=== PATIENT | female | born 2000 | race Caucasian/White ===

== ENCOUNTER 2019-12-22 07:57 | Inpatient (IN) | payer OTHER ==
[2019-12-22 08:42] LABS: APPEARANCE,URINE CLEAR; BILIRUBIN,URINE NEGATIVE (NEGATIVE); COLOR,URINE YELLOW; GLUCOSE, URINE NEGATIVE (NEGATIVE); KETONES,URINE NEGATIVE (NEGATIVE); LEUKOCYTE ESTERASE,URINE NEGATIVE (NEGATIVE); NITRITE,URINE NEGATIVE (NEGATIVE); PROTEIN,URINE NEGATIVE (NEGATIVE); URINE SPECIFIC GRAVITY 1.014; UROBILINOGEN,URINE NEGATIVE mg/dL (<2.0)
[2019-12-22 09:08] LABS: URINE AMPHETAMINES SCREEN NEGATIVE; URINE BARBITURATES SCREEN NEGATIVE; URINE BENZODIAZEPINES SCREEN NEGATIVE; URINE COCAINE SCREEN NEGATIVE; URINE MARIJUANA (THC) SCREEN NEGATIVE; URINE METHADONE SCREEN NEGATIVE; URINE PHENCYCLIDINE SCREEN NEGATIVE
--- NOTE | 2019-12-22 09:23 | Non Stress Test Report ---
Non Stress Test Datetime Report Generated by CPN: 12/22/2019 09:22 DEMOGRAPHIC EGA NST: 40.0 INDICATION Indication for Study (NST) Other: LC- ctxs MONITORING Monitor Explained: Monitor Explained; Test Explained; Patient Verbalized Understanding Time on Monitor: 12/22/2019 08:20 Time off Monitor: 12/22/2019 09:13 NST Duration: 53 NST INTERVENTIONS NST Interventions: PO Hydration Physician Notified NST: Dr Goff BABY A: [id number] BABY A Movement : Present Contraction Frequency : 2-5 FHR Baseline : 125 Accelerations : 15X15 Variability : Moderate 6-25bpm NST Review: Meets Criteria for Reactive NST NST Review and Verified By : Deedee Rios RN NST Results: Reactive NST REPORT Report Trigger: Send Report
[2019-12-22] MEDS ORDERED: RINGERS SOLUTION,LACTATED 1,000 ML IV ONE (10:29)
[2019-12-22] MEDS ORDERED: EPHEDRINE SULFATE INJ 50 MG/1 ML AMPULE ONE (10:32)
[2019-12-22] MEDS ORDERED: FENTANYL/BUPIVACAINE/NS/PF 300 MCG/150 ML RTUINJ EPI ONE (10:32)
[2019-12-22] MEDS ORDERED: ROPIVACAINE HCL 0.2% INJ/PF (2 MG/ML) 20 ML SDV ONE (10:33)
[2019-12-22] MEDS ORDERED: MISOPROSTOL 0.2 MG TABLET ONE (10:36)
[2019-12-22] MEDS ORDERED: OXYTOCIN/0.9 % SODIUM CHLORIDE 30 UNIT/500 ML RTUINJ ONE (10:36)
[2019-12-22] MEDS ORDERED: OXYTOCIN 10 UNIT/ML VIAL ONE (10:36)
[2019-12-22] MEDS ORDERED: LIDOCAINE 1% INJ-PF (10 MG/ML) 30 ML SDV ONE (10:36)
--- NOTE | 2019-12-22 10:46 | Admission Physical ---
Datetime Report Generated by CPN: 12/22/2019 10:46 CURRENT ADMISSION Chief Complaint: Uterine Contractions Chief Complaint Other: Having contractions every 2 minutes and they are very painful. Cervical change in OB triage from 3 cm to 4-5 over 1 hour. Admit Impression : Term, Intrauterine ; Active Labor Admit Plan: Admit to Unit; Initiate Labor Protocol ALLERGIES Medication Allergies: Yes Medication Allergies: Penicillins (12/22/2019) Latex: No Latex Allergies OBSTETRICAL HISTORY EDC: 12/22/2019 00:00 : 1 Para: 0 Term: 0 : 0 SAB: 0 IAB: 0 Ectopic: 0 Livin Cesareans: 0 VBACs: 0 Multiple Births: 0 Gestational Diabetes: No Rh Sensitization: No Incompetent Cervix: No OSMAN: No Infertility: No ART Treatment: No Uterine Anomaly: No IUGR: No Hx Previous C/S: No Macrosomia: No Hx Loss/Stillborn: No PIH: No Hx : No Placenta Previa/Abruption: No Depression/PP Depression: Yes PTL/PROM: No Post Hemorrhage: No Current Procedures: Ultrasound; NST Obstetrical History Comments: G1: current SEE RECORDS Alcohol: No Marijuana : No Cocaine: No Other Illicit Drugs: No Cigarettes: Never Smoker. [id number] MEDICAL HISTORY Diabetes: No Blood Transfusion: No Pulmonary Disease (Asthma, TB): No Breast Disease: No Hypertension: No Security Management Specialist Surgery: No Heart Disease: No Hosp/Surgery: No Autoimmune Disorder: No Anesthetic Complications: No Kidney Disease: No Abnormal Pap Smear: No Neuro/Epilepsy: No Psychiatric Disorders: No Other Medical Diseases: No Hepatitis/Liver Disease: No Significant Family History: No Varicosities/Phlebitis: No Trauma/Violence : No Thyroid Dysfunction: No Medical History Comments: bladder infections, depression INFECTIOUS HISTORY Gonorrhea: No Genital Herpes: No Chlamydia: No Tuberculosis: No Syphilis: No Hepatitis: No HIV/AIDS Exposure: No Rash or Viral Illness: No HPV: No PHYSICAL EXAM General: Normal HEENT: Normal Neurologic: Normal Thyroid: Normal Heart: Normal Lungs: Normal Breast: Normal Back: Normal Abdomen: Normal Genitourinary Exam: Normal Extremities: Normal DTRs: Normal Pelvic Type: Adequate Vital Signs: Reviewed; Within Normal Limits VAGINAL EXAM Dilatation: 5 Effacement: 50 Station: -2 Contraction Comments: every 2 minutes MEMBRANES Membranes: Intact FETUS A EGA: 40.0 Monitoring: External US FHR- Baseline: 120 Variability: Marked >25bpm Accelerations: 15X15 Decelerations: None FHR Category: Category I Presentation: Vertex Admit Comment: 19 yo G1 at 40.0 wks EGA in active labor -Admit to LDR -CEFM and toco -NPO and IVFs: LR at 125 cc/hr after 1 liter bolus -GBS negative -Desires epidural for pain mgt as soon as possible : labs pending -Anticipate PLANS FOR LABOR AND DELIVERY Labor and Delivery: None Pain Management: Epidural Feeding Preference: Breast Benefit of Breast Feed Discussed: Yes Circumcision: N/A INFORMED CONSENT Informed Consent Obtained: Vaginal Delivery; Section Delivery; Vacuum/Forceps Assist; Risks, Benefits and Alternatives Discussed Signature: with User ID: Hernando : with User ID: Hernando
[2019-12-22] MEDS ORDERED: NALBUPHINE HCL INJ 10 MG/1 ML AMPULE INJ ONE (10:48)
[2019-12-22] MEDS ORDERED: NALBUPHINE HCL INJ 10 MG/1 ML AMPULE ONE (10:48)
[2019-12-22 11:20] LABS: ABSOLUTE BASOPHILS # (AUTO) 0.1 10^3/uL (0.0-0.2); ABSOLUTE MONOCYTES (AUTO) 0.6 10^3/uL (0.1-1.4); ABSOLUTE NEUT (AUTO) 9.5 10^3/uL (1.7-8.2); BASOPHILS % (AUTO) 0.5 % (0-2); EOSINOPHILS % (AUTO) 0.4 % (0-6); HEMATOCRIT 29.7 % (36.0-47.0); HEMOGLOBIN 10.2 g/dL (12.0-15.5); LYMPHOCYTES % (AUTO) 9.3 % (13-45); MEAN CORPUSCULAR HEMOGLOBIN 30.6 pg (27.0-33.4); MEAN CORPUSCULAR HGB CONC 34.4 g/dL (32.0-36.0); MEAN CORPUSCULAR VOLUME 89 fl (80-97); MONOCYTES % (AUTO) 5.5 % (3-13); PLATELET COUNT 160 10^3/uL (150-450); RED BLOOD COUNT 3.34 10^6/uL (3.72-5.28); RED CELL DISTRIBUTION WIDTH 12.7 % (11.5-14.0); SEGMENTED NEUTROPHILS % (AUTO) 84.3 % (42-78); TOTAL CELLS COUNTED % (AUTO) 100 %; WHITE BLOOD COUNT 11.3 10^3/uL (4.0-10.5)
[2019-12-22] MEDS: RINGERS SOLUTION,LACTATED 1,000 ML IV PRN ×2 (11:30→16:01)
[2019-12-22] MEDS ORDERED: OXYTOCIN/0.9 % SODIUM CHLORIDE 30 UNIT/500 ML RTUINJ IV PRN ×2 (15:43→21:54)
[2019-12-22] MEDS ORDERED: LIDOCAINE 2% INJ-PF (20 MG/ML) 10 ML AMPUL ONE ×2 (17:11→21:05)
[2019-12-22] MEDS ORDERED: IBUPROFEN 800 MG TABLET ONE (19:18)
[2019-12-22] MEDS ORDERED: CLINDAMYCIN 900 MG/D5W RTU 900 MG/50 ML RTUPB IV ONE (19:41)
[2019-12-22] MEDS ORDERED: FENTANYL CITRATE INJ/PF 100 MCG/2 ML AMPUL ONE (21:05)
[2019-12-22] MEDS ORDERED: MIDAZOLAM 2 MG/2 ML INJ ONE (21:05)
[2019-12-22] MEDS ORDERED: PROPOFOL INJ 200 MG/20 ML VIAL IV ONE (21:05)
[2019-12-22] MEDS ORDERED: ONDANSETRON HCL INJ/PF 4 MG/2 ML SDV IV PRN (21:39)
[2019-12-22] MEDS ORDERED: DIPHENHYDRAMINE HCL 50 MG/ML VIAL IV PRN (21:39)
[2019-12-22] MEDS ORDERED: FENTANYL CITRATE INJ/PF 100 MCG/2 ML AMPUL IV PRN ×3 (21:39)
[2019-12-22] MEDS ORDERED: MEPERIDINE HCL/PF INJ 25 MG/1 ML DISP.SYRIN IV PRN (21:39)
[2019-12-22] MEDS ORDERED: PROMETHAZINE HCL INJ 25 MG/1 ML VIAL IV PRN ×3 (21:39→21:54)
--- NOTE | 2019-12-22 21:41 | Delivery Summary ---
Del Sum A-C Datetime Report Generated by CPN: 12/22/2019 21:41 DELIVERY PERSONNEL DELIVERY PERSONNEL: [id number] Delivery Doctor:: Jaqueline Goff MD Labor and Delivery Nurse:: Nicole Sloan RNcigar packer and picker Nurse:: Zohra Newman RN Nursery Nurse:: Radha Mar RN Fortune Cookie Maker/GUN BARREL FINISHER: Herminio Preciado CST Fortune Cookie Maker/GUN BARREL FINISHER: Roxi Schrader, [facility] MATERNAL INFORMATION Delivery Anesthesia: Epidural Medications After Delivery: Pitocin 30 Units in 500ml NS/D5W Estimated Blood Loss (ml): 300 Delivery QBL: 300 Maternal Complications: None Provider Comments: Called to patients room as she was complete and +2 with desire to push. After delivery of the head, the posterior hand could be felt at the posterior shoulder. No nuchal cords. Attempt was made to reduce the posterior arm but the anterior shoulder spontaneouslly delivered with the anterior. The rest of the body followed easily. Despite pressure on the perineum posteriorly during delivery a fourth degree laceration resulted. Infant was vigorous and cord clamping delayed for 30 seconds. Cord doubly clamped and cut. Infant placed on Mothers chest and nasal as well as oral suctioning was done. Repair of laceration as above but a small 1 cm rectal mucosa deficit remained and general surgery consulted for assistance with this repair. LABOR SUMMARY EDC: 12/22/2019 00:00 No. Babies in Womb: 1 Attempted: No Labor Anesthesia: Epidural LABOR INFORMATION Reason for Induction: Not Applicable Onset of Labor: 12/22/2019 10:23 Complete Dilatation: 12/22/2019 16:56 Oxytocin: Augmentation Group B Beta Strep: negative Antibiotics # of Doses: 0 Antibiotics Time of Last Dose: N/A Name of Antibiotic Given: N/A Steroids Given: None Reason Steroids Not Administered: Not Applicable MEMBRANES Membranes Rupture Method: Spontaneous Rupture of Membranes: 12/22/2019 13:15 Length of Rupture (hr): 5.90 Amniotic Fluid Color: Clear Amniotic Fluid Amount: Small Amniotic Fluid Odor: Normal STAGES OF LABOR Stage 1 hr: 6 Stage 1 min: 33 Stage 2 hr: 2 Stage 2 min: 13 Stage 3 hr: 0 Stage 3 min: 4 Total Time in Labor hr: 8 Total Time in Labor min: 50 VAGINAL DELIVERY Episiotomy: None Laceration #1: Perineal Laceration Extension #1: Fourth Degree Other Laceration: 2nd degree right vaginal wall Laceration Repair: Yes Laceration Repair Note: Second degree repaired with 2-0 chromic and fourth degree repaired in layered closure with assistance of general surgery. The rectal mucosa was repaired in a running fashion with 3-0 chromic. Rectal muscles were reapproximated with 2-0 chromic in a series of interrupted stitches. The perineal muscles were reapproximated and then the remaining mucosa was repaired. After repair complete a digital rectal exam was done and a small deficit was noted in the rectal mucosa anteriorly about 1 cm inside the rectum. Will go to OR for repair of this and consult general surgery for assistance. Sponge Count Correct: Yes Sharps Count Correct: Yes CSECTION DELIVERY Primary Indication: N/A Secondary Indication: N/A CSection Incidence: N/A Labor: N/A Elective: Failed CSection Incision: N/A BABY A INFORMATION Delivery Date/Time: 12/22/2019 19:09 Method of Delivery: Vaginal Born in Route : No : N/A Forceps: N/A Vacuum Extraction: N/A Shoulder Dystocia : No PRESENTATION/POSITION BABY A Presentation: Cephalic Cephalic Presentation: Vertex Vertex Position: Right Occipital Anterior Breech Presentation: N/A PLACENTA INFORMATION BABY A Placenta Delivery Time : 12/22/2019 19:13 Placenta Method of Delivery: Spontaneous Placenta Status: Delivered SCORES BABY A Heart Rate 1 min: >100 bpm Resp Effort 1 min: Good Cry Reflex Irritability 1 min: Cough or Sneeze or Pulls Away Muscle Tone 1 min: Active Motion Color 1 min: Blue/Pale Resuscitation Effort 1 min: Tactile Stimulation SCORE 1 MIN: 8 Heart Rate 5 min: >100 bpm Resp Effort 5 min: Good Cry Reflex Irritability 5 min: Cough or Sneeze or Pulls Away Muscle Tone 5 min: Active Motion Color 5 min: Body [place], Extremities Blue Resuscitation Effort 5 min: Tactile Stimulation SCORE 5 MIN: 9 INFORMATION BABY A Gestational Age at Delivery: 40.0 Gestational Status: Full Term- 39- 40.6 Weeks Infant Outcome : Liveborn Infant Condition : Stable Sex: Female IDENTIFICATION BABY A Infant Verification Date/Time: 12/22/2019 20:26 ID Band Number: [id number] Mother's Name Verified: Yes Infant RN Verifying Infant: Alex Sloan RN Additional Verifying Personnel: Juliane Atkins CST WEIGHT/LENGTH BABY A Infant Birthweight (gm): 3360 Infant Weight (lb): 7 Weight (oz): 7 Length (in): 19.00 Length (cm): 48.26 CORD INFORMATION BABY A No. Cord Vessels: 3 Nuchal Cord : N/A Cord Blood Taken: N/A Suction: Mouth; Nose ASSESSMENT BABY A Complications: None Physical Findings at Delivery: Within Normal Limits Physical Findings- Other: See full nursery germination testing manager Respirations: Appears Normal Skin to Skin: Yes Skin to Skin Time (min): 60 Infant Care By: Severo Mar RN Transferred To: Remains with Mother BABY B INFORMATION : N/A SIGNATURES Signature: with User ID: Hernando : with User ID: Hernando
[2019-12-22] MEDS ORDERED: ZOLPIDEM TARTRATE 5 MG TABLET PO PRN (21:54)
[2019-12-22] MEDS ORDERED: PROMETHAZINE HCL 25 MG SUPP.RECT PR PRN (21:54)
[2019-12-22] MEDS ORDERED: DIPHENHYDRAMINE HCL 25 MG CAPSULE PO PRN (21:54)
[2019-12-22] MEDS ORDERED: DIBUCAINE 1% OINTMENT 28 GM TP PRN (21:54)
[2019-12-22] MEDS ORDERED: ACETAMINOPHEN 650 MG SUPP.RECT PR PRN (21:54)
[2019-12-22] MEDS ORDERED: GLYCERIN/WITCH HAZEL LEAF 1 EACH MED..WIPE TP PRN (21:54)
[2019-12-22] MEDS ORDERED: ACETAMINOPHEN WITH CODEINE #3 TABLET PO PRN (21:54)
[2019-12-22] MEDS ORDERED: MEASLES,MUMPS&RUBELLA VACC/PF 0.5 ML VIAL SUBCUT PRN (21:54)
[2019-12-22] MEDS ORDERED: PROMETHAZINE HCL 25 MG TABLET PO PRN (21:54)
[2019-12-22] MEDS ORDERED: DIPH/PERTUSS(ACELL)/TETANUS VAC/PF 0.5 ML SYR (>=10YO) IM PRN (21:54)
[2019-12-22] MEDS ORDERED: PSEUDOEPHEDRINE HCL 30 MG TABLET PO PRN (21:54)
[2019-12-22] MEDS ORDERED: NA PHOS,M-B/NA PHOS,DI-BA (ADULT) 133 ML ENEMA PR PRN (21:54)
[2019-12-22] MEDS ORDERED: MAGNESIUM HYDROXIDE SUSP 30 ML UDCUP PO PRN (21:54)
[2019-12-22] MEDS ORDERED: ACETAMINOPHEN 325 MG TABLET PO PRN (21:54)
[2019-12-22] MEDS ORDERED: BENZOCAINE/MENTHOL AEROSOL SPRAY 56 ML TOP PRN (21:54)
[2019-12-22] MEDS ORDERED: SENNOSIDES/DOCUSATE 8.6-50 MG 1 EACH TABLET PO SCH (22:00)
[2019-12-22] MEDS ORDERED: DOCUSATE SODIUM 100 MG CAPSULE PO SCH (22:00)
--- NOTE | 2019-12-22 22:03 | Operative Report ---
Operative Report DATE OF SURGERY: 12/22/19 PREOPERATIVE DIAGNOSIS: 1. Status post normal spontaneous vaginal delivery, nu liparous. 2. Fourth degree episiotomy tear status post repair POSTOPERATIVE DIAGNOSIS: Same OPERATION: 1. Exam under anesthesia of the perineum. 2. Closure of small defect anterior rectal mucosa SURGEON: JAMAR FINN ORDER RUNNER: MATTEO HANSON ANESTHESIA: Epidural TISSUE REMOVED OR ALTERED: None COMPLICATIONS: None ESTIMATED BLOOD LOSS: Minimal INTRAOPERATIVE FINDINGS: See below PROCEDURE: I received a phone call from Dr. Matteo Hanson proximately 30 minutes prior to patient's arrival in the main operating room. The patient had undergone normal spontaneous vaginal delivery with a challenging delivery resulting in 4th degree episiotomy tear. This was repaired by Dr. Hanson on the second floor. At the conclusion of her repair, she was concerned that there was a small 1+ centimeter defect in the rectal mucosa and due to limited lighting, and exposure, she chose to examine the patient under anesthesia in the main operating room with general surgery assisting The patient was taken uneventfully to the main operating room where the existing neural catheter was used for anesthesia in addition to LMAC. The patient was hemodynamically stable. A Santoro catheter had been previously inserted. The patient was placed in wide stirrup position. Surgical plan surgical timeout were conducted. The peritoneum was prepped with Betadine. The findings were significant for moderate edema of the perineum including the vulva and perianal tissue. There was an operative closure with excellent approximation of the visible perineal body. Palpation of the posterior vaginal wall demonstrated an intact repair. There was a small, separate mucosal tear which was repaired previously. Regarding the rectum, the anterior repair coming over the anal verge was intact, however just inside the anal canal, and likely distal to the dentate line, was a small palpable mucosal defect that could be palpated. I carefully inserted a small then medium Jama retractor into the anal canal and appreciated a 1-1/2 cm mucosal gap in the closure. Deep to this the external anal sphincter appeared to be intact. I did not interrogate the repair any further because it appeared to be sound and intact. A running 3-0 Vicryl suture was used to close the mucosal defect in the anterior rectum orienting the closure longitudinally. We were satisfied with the final result. Bleeding was minimal. A large Gelfoam was moistened with saline and rolled and inserted into the anal canal. Patient tolerated the procedure well. She is taken to recovery in stable condition.
[2019-12-23] MEDS: ACETAMINOPHEN WITH CODEINE #3 TABLET PO PRN ×2 (01:38→08:18)
[2019-12-23] MEDS: FAMOTIDINE 20 MG TABLET PO SCH ×3 (03:49→21:14)
[2019-12-23] MEDS: IBUPROFEN 800 MG TABLET PO SCH ×4 (03:49→21:14)
[2019-12-23] MEDS: DOCUSATE SODIUM 100 MG CAPSULE PO SCH ×2 (03:51→19:00)
[2019-12-23] MEDS: CLINDAMYCIN 600 MG/D5W RTU 600 MG/50 ML RTUPB IV SCH ×3 (03:54→21:13)
[2019-12-23] MEDS ORDERED: SENNOSIDES/DOCUSATE 8.6-50 MG 1 EACH TABLET PO SCH (04:00)
[2019-12-23 07:49] LABS: HEMATOCRIT 24.7 % (36.0-47.0); HEMOGLOBIN 8.6 g/dL (12.0-15.5); MEAN CORPUSCULAR HEMOGLOBIN 30.9 pg (27.0-33.4); MEAN CORPUSCULAR HGB CONC 34.9 g/dL (32.0-36.0); MEAN CORPUSCULAR VOLUME 89 fl (80-97); PLATELET COUNT 135 10^3/uL (150-450); RED BLOOD COUNT 2.78 10^6/uL (3.72-5.28); RED CELL DISTRIBUTION WIDTH 12.6 % (11.5-14.0); WHITE BLOOD COUNT 9.7 10^3/uL (4.0-10.5)
[2019-12-23] MEDS: PRENATAL VITAMIN W DHA CAPSULE PO SCH (09:51)
--- NOTE | 2019-12-23 10:08 | PDOC PROGRESS REPORT ---
Subjective-OB Progress Note for:: 12/23/19 - PP Day #1, doing well, s/p 4th degree repair. Cook cath remains, Rectal packing in place. Pt states she is passing gas. Discussed eating soft foods, using icepack and stool softners. Has not been OUB yet. A+,, Rubella Immune, Physical Exam (OB) Vital Signs: Temp Pulse Resp BP Pulse Ox 98.1 F 94 16 106/63 98 12/23/19 03:36 12/23/19 03:36 12/23/19 03:36 12/23/19 03:36 12/23/19 03:36 Intake & Output 12/22/19 12/23/19 12/24/19 06:59 06:59 06:59 Intake Total 915 500 Output Total 810 Balance 105 500 Weight 74.9 kg - General General Appearance: Appears well, Alert In distress: None - PIH/Pre-Eclampsia Headache: Absent Epigastric Pain: No Visual Changes: No - Episiotomy/Laceration Site Condition: Well Approximated, Edematous Episiotomy/Laceration Note: rectal packing in place - Lochia Lochia Amount: Scant < 10 ml Lochia Color: Rubra/Red - Abdomen Description: Soft, Round Fundal Description: Firm, Midline Fundal Height: u/u - u/2 - Respiratory Respiratory Status: No respiratory distress - Abdominal Distension: No distension Tenderness: Nontender - Genitourinary Genitourinary Note: cook cath present - Extremities Upper extremity: Normal inspection Lower extremities: Normal inspection - Neurological Cognition: Normal Orientation: AAOx4 - Psychological Associated symptoms: Normal affect, Normal mood - Skin Skin Temperature: Warm Skin Moisture: Dry Objective-Diagnostic Laboratory: 12/23/19 07:17 12/22/19 12/22/19 12/23/19 11:09 11:09 07:17 WBC 11.3 H 9.7 RBC 3.34 L 2.78 L Hgb 10.2 L 8.6 L Hct 29.7 L 24.7 L MCV 89 89 MCH 30.6 30.9 MCHC 34.4 34.9 RDW 12.7 12.6 Plt Count 160 135 L Seg Neutrophils % 84.3 H Blood Type A POSITIVE Antibody Screen NEGATIVE Assessment and Plan(PN) - Assessment and Plan (1) Fourth degree laceration of perineum during delivery, Is this a current diagnosis for this admission?: Yes (2) (normal spontaneous vaginal delivery) Is this a current diagnosis for this admission?: Yes Plan:: Plan of care discussed w/ patient and Dr Goff. Dr Goff will come by room later on today and remove cook cath and rectal packing. Will hold off on iron supplem ents for now, see how pt does w/ ambulation. Ice packs to perineum. Soft foods. - Time Spent with Patient Time with patient: Less than 15 minutes Medications reviewed and adjusted accordingly: Yes - Disposition Anticipated Discharge Disposition: Home, Self Care Anticipated Discharge Timeframe: within 24 hours
[2019-12-24] MEDS: ACETAMINOPHEN WITH CODEINE #3 TABLET PO PRN (02:43)
[2019-12-24] MEDS: IBUPROFEN 800 MG TABLET PO SCH ×3 (05:04→23:09)
[2019-12-24] MEDS: CLINDAMYCIN 600 MG/D5W RTU 600 MG/50 ML RTUPB IV SCH (05:04)
--- NOTE | 2019-12-24 07:42 | PDOC PROGRESS REPORT ---
Subjective Progress Note for:: 12/24/19 Reason For Visit: Patient resting quietly. No issues overnight. Pain managed with PRN meds. Bleeding vaginally is light. She is passing gas. Physical Exam - Physical Exam Vital Signs: Temp Pulse Resp BP Pulse Ox 98.1 F 72 16 125/70 99 12/24/19 04:09 12/24/19 04:09 12/24/19 04:09 12/24/19 04:09 12/24/19 04:09 Intake & Output 12/23/19 12/24/19 12/25/19 06:59 06:59 06:59 Intake Total 965 600 Output Total 810 4050 Balance 155 -3450 Weight 74.9 kg General appearance: PRESENT: no acute distress, cooperative GI/Abdominal exam: PRESENT: normal bowel sounds - Fundus firm and 2 below umbilicus, soft Neurological exam: PRESENT: alert Psychiatric exam: PRESENT: appropriate affect, normal mood Skin exam: PRESENT: dry, warm - Obstetrical Exam External Genitalia: other - edematous. Tesfaye removed. Surgifoam out Fundal Height: u/u - u/2 Result Laboratory Results: 12/23/19 07:17 12/23/19 07:17 WBC 9.7 RBC 2.78 L Hgb 8.6 L Hct 24.7 L MCV 89 MCH 30.9 MCHC 34.9 RDW 12.6 Plt Count 135 L Assessment & Plan - Diagnosis (1) Fourth degree laceration of perineum during delivery, Is this a current diagnosis for this admission?: Yes (2) (normal spontaneous vaginal delivery) Is this a current diagnosis for this admission?: Yes - Time Time Spent with patient: 15-24 minutes - Plan Summary Plan Summary: 19 yo s/o iwth 4th degree laceration. PPD # 2 -Doing well -Pain well managed -VB light -Tesfaye out this am d/t swelling of perineum. Continue ice paces -May advance diet -Surgifoam removed (had nearly fallen out). continue stool softners and laxatives now and on DISCHARGE -f/u in office in 1 wk to 10 days for evaluation short interval d/t 4th degree laceration.
--- NOTE | 2019-12-24 08:21 | PDOC PROGRESS REPORT ---
Subjective-OB Progress Note for:: 12/24/19 Subjective: Attempting to ambulate for first time-with assistance. Physical Exam (OB) Vital Signs: Temp Pulse Resp BP Pulse Ox 98.1 F 72 16 125/70 99 12/24/19 04:09 12/24/19 04:09 12/24/19 04:09 12/24/19 04:09 12/24/19 04:09 Intake & Output 12/23/19 12/24/19 12/25/19 06:59 06:59 06:59 Intake Total 965 600 Output Total 810 4050 Balance 155 -3450 Weight 74.9 kg - PIH/Pre-Eclampsia Clonus: Negative Headache: Absent Epigastric Pain: No Visual Changes: No - Maternal Morbidity Maternal Morbidity (serious complications experinced by the mother associated with labor and delivery: Third or fourth degree perineal laceration - Lochia Lochia Amount: Scant < 10 ml Lochia Color: Rubra/Red - Abdomen Description: Tender, Soft, Round Hernia Present: No Bowel Sounds: Normoactive Flatus Presence: Present Stool: No Fundal Description: Firm, Midline Fundal Height: u/u - u/2 Objective-Diagnostic Laboratory: 12/23/19 07:17 Assessment and Plan(PN) - Time Spent with Patient Time with patient: 15-25 minutes Medications reviewed and adjusted accordingly: Yes - Disposition Anticipated Discharge Disposition: Home, Self Care Anticipated Discharge Timeframe: within 36 hours
[2019-12-24] MEDS: LACTULOSE SYRUP 20 GM/30 ML UDCUP PO SCH (09:24)
[2019-12-24] MEDS: DOCUSATE SODIUM 100 MG CAPSULE PO SCH ×2 (09:25→17:42)
[2019-12-24] MEDS: PRENATAL VITAMIN W DHA CAPSULE PO SCH (09:25)
[2019-12-24] MEDS: FAMOTIDINE 20 MG TABLET PO SCH ×2 (09:25→23:09)
[2019-12-25] MEDS: IBUPROFEN 800 MG TABLET PO SCH ×2 (06:25→13:57)
[2019-12-25] MEDS: LACTULOSE SYRUP 20 GM/30 ML UDCUP PO SCH (10:40)
[2019-12-25] MEDS: FAMOTIDINE 20 MG TABLET PO SCH (10:41)
[2019-12-25] MEDS: PRENATAL VITAMIN W DHA CAPSULE PO SCH (10:41)
[2019-12-25] MEDS: DOCUSATE SODIUM 100 MG CAPSULE PO SCH ×2 (10:41→17:26)
--- NOTE | 2019-12-25 11:27 | PDOC DISCHARGE SUMMARY ---
Impression - Admit/DC Date/PCP Admission Date/Primary Care Provider: 12/22/19 10:30 JOANNA VIRK MD Discharge Date: 12/25/19 - Discharge Diagnosis (1) Anemia Is this a current diagnosis for this admission?: Yes (2) Depression with anxiety Is this a current diagnosis for this admission?: Yes (3) Fourth degree laceration of perineum during delivery, Is this a current diagnosis for this admission?: Yes (4) (normal spontaneous vaginal delivery) Is this a current diagnosis for this admission?: Yes - Additional Information Resuscitation Status: Full Code Discharge Diet: Regular Discharge Activity: Balance Activity w/Rest, Pelvic Rest Referrals: JOANNA VIRK MD [Primary Care Provider] - Prescriptions: Ibuprofen [Motrin 800 mg Tablet] 800 mg PO Q8HP PRN #60 tablet PRN Reason: Docusate Sodium [Colace 100 mg Capsule] 100 mg PO BID #60 capsule Home Medications: Vits96/Iron Fum/Folic [ Tablet] 1 each PO DAILY 12/22/19 Docusate Sodium [Colace 100 mg Capsule] 100 mg PO BID #60 capsule 12/25/19 Ibuprofen [Motrin 800 mg Tablet] 800 mg PO Q8HP PRN #60 tablet 12/25/19 HPI Gestational Age: 40.0 Reason(s) for Admission: Onset of Labor Procedures: NST Intrapartum Procedure(s): Spontaneous Vaginal Delivery Intrapartum Procedure Note: compound hand w delivery Complication(s): Laceration-Perineal, Other Laceration-Degree: 4th Complication(s) Note: gen surg consult for assistance with rectal mucosa repair, pt taken to OR, rectal packing placed after repair, removed the next day Hospital Course Hospital Course: pt was taken to OR after delivery and after repair of 4th degree, Dr. Guerrier assisted with repair of rectal mucosa, rectal packing placed and removed the following day. PPD2 pt was passing gas and on soft diet. She has been progressed to reg diet and reports having had a BM now. Maternal Morbidity (serious complications experinced by the mother associated with labor and delivery: Third or fourth degree perineal laceration Results Laboratory Results: WBC 9.7 10^3/uL (4.0-10.5) 12/23/19 07:17 RBC 2.78 10^6/uL (3.72-5.28) L 12/23/19 07:17 Hgb 8.6 g/dL (12.0-15.5) L 12/23/19 07:17 Hct 24.7 % (36.0-47.0) L 12/23/19 07:17 MCV 89 fl (80-97) 12/23/19 07:17 MCH 30.9 pg (27.0-33.4) 12/23/19 07:17 MCHC 34.9 g/dL (32.0-36.0) 12/23/19 07:17 RDW 12.6 % (11.5-14.0) 12/23/19 07:17 Plt Count 135 10^3/uL (150-450) L 12/23/19 07:17 Lymph % (Auto) 9.3 % (13-45) L 12/22/19 11:09 [place] % (Auto) 5.5 % (3-13) 12/22/19 11:09 Eos % (Auto) 0.4 % (0-6) 12/22/19 11:09 Baso % (Auto) 0.5 % (0-2) 12/22/19 11:09 Absolute Neuts (auto) 9.5 10^3/uL (1.7-8.2) H 12/22/19 11:09 Absolute Lymphs (auto) 1.0 10^3/uL (0.5-4.7) 12/22/19 11:09 Absolute Monos (auto) 0.6 10^3/uL (0.1-1.4) 12/22/19 11:09 Absolute Eos (auto) 0.0 10^3/uL (0.0-0.6) 12/22/19 11:09 Absolute Basos (auto) 0.1 10^3/uL (0.0-0.2) 12/22/19 11:09 Seg Neutrophils % 84.3 % (42-78) H 12/22/19 11:09 Urine Color YELLOW 12/22/19 08:15 Urine Appearance CLEAR 12/22/19 08:15 Urine pH 7.0 (5.0-9.0) 12/22/19 08:15 Ur Specific Crowell 1.014 12/22/19 08:15 Urine Protein NEGATIVE mg/dL (NEGATIVE) 12/22/19 08:15 Urine Glucose (UA) NEGATIVE mg/dL (NEGATIVE) 12/22/19 08:15 Urine Ketones NEGATIVE mg/dL (NEGATIVE) 12/22/19 08:15 Urine Blood NEGATIVE (NEGATIVE) 12/22/19 08:15 Urine Nitrite NEGATIVE (NEGATIVE) 12/22/19 08:15 Urine Bilirubin NEGATIVE (NEGATIVE) 12/22/19 08:15 Urine Urobilinogen NEGATIVE mg/dL (<2.0) 12/22/19 08:15 Ur Leukocyte Esterase NEGATIVE (NEGATIVE) 12/22/19 08:15 Urine Ascorbic Acid NEGATIVE (NEGATIVE) 12/22/19 08:15 Urine Opiates Screen NEGATIVE 12/22/19 08:15 Urine Methadone Screen NEGATIVE 12/22/19 08:15 Ur Barbiturates Screen NEGATIVE 12/22/19 08:15 Ur Phencyclidine Scrn NEGATIVE 12/22/19 08:15 Ur Amphetamines Screen NEGATIVE 12/22/19 08:15 U Benzodiazepines Scrn NEGATIVE 12/22/19 08:15 Urine Cocaine Screen NEGATIVE 12/22/19 08:15 U Marijuana (THC) Screen NEGATIVE 12/22/19 08:15 RPR NONREACTIVE (NONREACTIVE) 12/22/19 11:09 Blood Type A POSITIVE 12/22/19 11:09 Antibody Screen NEGATIVE 12/22/19 11:09 Plan Plan of Treatment: continue stool softener, sitz baths at home TID Time Spent: Less than 30 Minutes
[2019-12-25 12:00] VITALS: BP 98/63
== END 2019-12-25 19:37 | disposition home or self-care (01) | DRG 768 ==
LOC: LC 07:57 → LR 10:30 → 2S 23:00
PROVIDERS: ADMIT Obstetrics & Gynecology; ATTEND Obstetrics & Gynecology
PROC: 0DQP0ZZ Repair Rectum, Open Approach (ICD-10-PCS; 2019-12-22)
PROC: 10E0XZZ Delivery of Products of Conception, External Approach (ICD-10-PCS; principal; 2019-12-22 21:15)
DX: O70.3 Fourth degree perineal laceration during delivery (principal); Z37.0 Single live birth; E66.01 Morbid (severe) obesity due to excess calories; O99.02 Anemia complicating childbirth; O99.344 Other mental disorders complicating childbirth; F32.9 Major depressive disorder, single episode, unspecified; O99.214 Obesity complicating childbirth; Z3A.40 40 weeks gestation of pregnancy; Z88.0 Allergy status to penicillin
CPT/HCPCS: 1967; 36415; 80307; 81005; 85025; 85027; 86592; 86850; 86900; 86901; 90715; 940; 99140; C1758; J2250; J2300; J2590; J2704; J2795; J3010; J3490